=== PATIENT | female | born 1935 | race Caucasian/White ===

== ENCOUNTER 2021-01-03 11:36 | Inpatient (IN) | payer MEDICARE, BC ==
[~2021-01-03] VITALS: Ht 152.4 cm; Wt 100.0 kg
[2021-01-03 12:29] LABS: BASOPHILS # (AUTO) 0.1 X10'3 (0-0.2); EOSINOPHILS # (AUTO) 0.1 X10'3 (0-0.9); EOSINOPHILS % (AUTO) 1.4 % (0-6); HEMATOCRIT 35.8 % (35.0-45.0); LYMPHOCYTES # (AUTO) 2.7 X10'3 (1.1-4.8); LYMPHOCYTES % (AUTO) 30.8 % (21-51); MEAN CORPUSCULAR HEMOGLOBIN 20.9 PG (27.0-31.0); MEAN CORPUSCULAR HGB CONC 30.7 g/dL (33.0-36.5); MEAN CORPUSCULAR VOLUME 68.2 FL (78-98); MEAN PLATELET VOLUME 8.6 FL (7.4-10.4); MONOCYTES # (AUTO) 0.9 X10'3 (0-0.9); NEUTROPHILS % (AUTO) 56.8 % (42-75); PLATELET COUNT 330 X10'3 (140-440); RED BLOOD COUNT 5.25 X10'6 (4.20-5.60); RED CELL DISTRIBUTION WIDTH 19.3 % (11.5-14.5); WHITE BLOOD COUNT 8.8 X10'3 (4.5-11.0)
[2021-01-03 12:50] LABS: ALANINE AMINOTRANSFERASE 17 U/L (12-78); ALBUMIN 3.6 G/DL (3.4-5.0); ALKALINE PHOSPHATASE 117 IU/L (46-116); ANION GAP 9 (8-16); ASPARTATE AMINO TRANSFERASE 14 U/L (10-37); BILIRUBIN,TOTAL 0.6 MG/DL (0.1-1.0); BLOOD UREA NITROGEN 20 MG/DL (7-18); BUN/CREATININE RATIO 21.1 (6.6-38.0); CALCIUM 9.1 MG/DL (8.5-10.1); CHLORIDE 107 MMOL/L (99-107); CREATININE 0.95 MG/DL (0.40-0.90); GLUCOSE 96 MG/DL (70-104); POTASSIUM 4.3 MMOL/L (3.5-5.1); SODIUM 143 MMOL/L (135-145); TOTAL CARBON DIOXIDE 27.1 MMOL/L (24-32); TOTAL PROTEIN 7.3 G/DL (6.4-8.2); eGFR 56 ML/MIN
[2021-01-03] MEDS ORDERED: iohexol 350MG/ML 100ml bottle IV ONE (12:55)
[2021-01-03 13:18] LABS: PLATELET ESTIMATE NORMAL
[2021-01-03 13:19] LABS: HYPOCHROMASIA 2+; POLYCHROMASIA 1+
[2021-01-03 13:20] LABS: ANISOCYTOSIS 2+; ELLIPTOCYTES 1+; MICROCYTOSIS 2+
[2021-01-03] MEDS ORDERED: aspirin 325mg tablet PO ONE (14:15)
[2021-01-03] MEDS ORDERED: SYN0.088T PO (15:33)
[2021-01-03] MEDS ORDERED: LOSA25TA96 PO (15:46)
[2021-01-03] MEDS ORDERED: AMLO-93 PO (15:46)
[2021-01-03] MEDS ORDERED: normal saline 1000ml 1,000 ML IV SCH (16:25)
[2021-01-03] MEDS ORDERED: mag hydrox/Alum hydrox/simeth 30ml oral suspension PO PRN (16:25)
[2021-01-03] MEDS ORDERED: metoclopramide 5 mg/ml inj IV PRN (16:25)
[2021-01-03] MEDS ORDERED: ondansetron/PF 4mg/2ml inj IV PRN (16:25)
[2021-01-03] MEDS ORDERED: potassium Cl 20 mEq SR tablet PO PRN ×2 (16:25)
[2021-01-03] MEDS ORDERED: magnesium 4gm in 100ml NS 100 ML IV PRN (16:25)
[2021-01-03] MEDS ORDERED: magnesium hydroxide 30ml (MOM) UD suspension PO PRN (16:25)
[2021-01-03] MEDS ORDERED: bisacodyl 10mg suppository rectal RC PRN (16:25)
[2021-01-03] MEDS ORDERED: LORazepam 2 mg/ml vial IV PRN (16:25)
[2021-01-03] MEDS ORDERED: acetaminophen 325mg tablet PO PRN ×2 (16:25)
[2021-01-03] MEDS ORDERED: HYDROcodone/acetaminophen 10/325mg tab PO PRN (16:25)
[2021-01-03] MEDS ORDERED: magnesium 2GM in 50ml NS 50 ML IV PRN (16:25)
[2021-01-03] MEDS ORDERED: magnesium Cl slow-release 64mg tablet PO PRN (16:25)
[2021-01-03] MEDS ORDERED: potassium Cl 40MEQ/1/2NS 520ml 520 ML IV PRN ×2 (16:25)
[2021-01-03] MEDS ORDERED: HYDROcodone/acetaminophen 5mg/325mg tablet PO PRN (16:25)
[2021-01-03] MEDS: amLODIPine 5mg tablet PO SCH (17:28)
[2021-01-03] MEDS: K and/or MAG REPLACEMENT MC SCH (19:50)
[2021-01-03] MEDS: docusate sod 100mg capsule PO SCH (20:55)
[2021-01-03] MEDS ORDERED: temazepam 15mg capsule PO PRN (21:00)
[2021-01-03 21:07] LABS: CLARITY,URINE CLEAR (Clear); COLOR,URINE STRAW (Yellow); GLUCOSE, URINE NEGATIVE (Neg); KETONES,URINE NEGATIVE (Neg); LEUKOCYTE ESTERASE ,URINE NEGATIVE (Neg); NITRITES, URINE NEGATIVE (Neg); OCCULT BLOOD,URINE NEGATIVE (Neg); PROTEIN,URINE NEGATIVE (Neg); UA COLLECTION TYPE CLN CATCH MIDSTREAM; UROBILINOGEN,URINE 0.2 E.U/dL (0.2-1.0)
[2021-01-04 00:58] LABS: BASOPHILS # (AUTO) 0.1 X10'3 (0-0.2); BASOPHILS % (AUTO) 0.8 % (0-1); EOSINOPHILS # (AUTO) 0.2 X10'3 (0-0.9); EOSINOPHILS % (AUTO) 2.3 % (0-6); HEMOGLOBIN 10.2 g/dl (12.0-16.0); LYMPHOCYTES # (AUTO) 3.5 X10'3 (1.1-4.8); MEAN CORPUSCULAR HEMOGLOBIN 21.4 PG (27.0-31.0); MEAN CORPUSCULAR HGB CONC 31.9 g/dL (33.0-36.5); MEAN CORPUSCULAR VOLUME 67.1 FL (78-98); MEAN PLATELET VOLUME 8.6 FL (7.4-10.4); MONOCYTES % (AUTO) 10.8 % (2-12); NEUTROPHILS # (AUTO) 4.4 X10'3 (1.8-7.7); NEUTROPHILS % (AUTO) 48.1 % (42-75); PLATELET COUNT 312 X10'3 (140-440); RED BLOOD COUNT 4.77 X10'6 (4.20-5.60); RED CELL DISTRIBUTION WIDTH 19.2 % (11.5-14.5); WHITE BLOOD COUNT 9.1 X10'3 (4.5-11.0)
[2021-01-04 01:12] LABS: ALANINE AMINOTRANSFERASE 13 U/L (12-78); ALBUMIN 3.2 G/DL (3.4-5.0); ALBUMIN/GLOBULIN RATIO 0.9 (1.1-1.5); ALKALINE PHOSPHATASE 106 IU/L (46-116); ANION GAP 7 (8-16); ASPARTATE AMINO TRANSFERASE 16 U/L (10-37); BILIRUBIN,TOTAL 0.5 MG/DL (0.1-1.0); BLOOD UREA NITROGEN 17 MG/DL (7-18); BUN/CREATININE RATIO 19.1 (6.6-38.0); CALCIUM 8.6 MG/DL (8.5-10.1); CHLORIDE 106 MMOL/L (99-107); CREATININE 0.89 MG/DL (0.40-0.90); GLUCOSE 98 MG/DL (70-104); SODIUM 142 MMOL/L (135-145); TOTAL CARBON DIOXIDE 29.3 MMOL/L (24-32); TOTAL PROTEIN 6.6 G/DL (6.4-8.2); eGFR 60 ML/MIN
[2021-01-04 01:16] LABS: ANISOCYTOSIS 2+; ELLIPTOCYTES 1+; MICROCYTOSIS 2+; PLATELET ESTIMATE NORMAL
[2021-01-04 01:18] LABS: CHOL/HDL RATIO 6.4 (0.00-4.99); CHOLESTEROL 290 MG/DL (0-200); HDL CHOLESTEROL 45 MG/DL (35-60); LDL CHOLESTEROL 237 MG/DL (50-100); MAGNESIUM 2.1 MG/DL (1.5-2.4); PHOSPHORUS 3.7 MG/DL (2.3-4.5); TRIGLYCERIDES 75 MG/DL (20-135)
[2021-01-04] MEDS ORDERED: levoTHYROXINE 88mcg tablet PO SCH (07:00)
[2021-01-04] MEDS: docusate sod 100mg capsule PO SCH (08:00)
[2021-01-04] MEDS: K and/or MAG REPLACEMENT MC SCH (08:00)
[2021-01-04] MEDS ORDERED: enoxaparin 40mg/0.4ml syringe SUBCUT SCH (08:00)
[2021-01-04] MEDS ORDERED: losartan 50mg tablet PO SCH (08:00)
[2021-01-04] MEDS ORDERED: aspirin 81mg, enteric-coated 1 TAB TABLET.DR PO SCH (08:00)
[2021-01-04] MEDS: amLODIPine 5mg tablet PO SCH (08:28)
[2021-01-04] MEDS ORDERED: GADOTERATE MEGLUMINE 7.5 MMOL/15 ML VIAL IV ONE (10:22)
--- NOTE | 2021-01-04 12:30 | NUR ---
assumed care of pt from Eber HAMILTON
--- NOTE | 2021-01-04 13:17 | NUR ---
pt is sitting up at edge of bed eating lunch, nikunj well, no n/v
--- NOTE | 2021-01-04 13:25 | NUR ---
Marleen, stroke nurse at bedside, pt amb with cane to restroom, slow steady gait, no dizziness, no lightheaded
--- NOTE | 2021-01-04 13:40 | NUR ---
Dr Lockett at bedside to evaluate pt, gave verbal order for EKG
--- NOTE | 2021-01-04 13:48 | NUR ---
Dr Lockett said EKG showed irregular sinus rhythm
[2021-01-04] MEDS ORDERED: LOSA50TA64 PO (14:15)
[2021-01-04] MEDS ORDERED: ATOR40TA PO (14:15)
[2021-01-04] MEDS ORDERED: ASPI-1071 PO (14:15)
[2021-01-04] MEDS ORDERED: CLOP75TA15 PO (14:15)
[2021-01-04] MEDS ORDERED: NOR5T PO (14:15)
--- NOTE | 2021-01-04 14:15 | NUR ---
physical therapy at bedside
[2021-01-04 16:43] VITALS: BP 136/67
== END 2021-01-04 16:30 | disposition home health service (06) | DRG 66 ==
LOC: ER 11:37 → ED HOLD 16:30
PROVIDERS: ADMIT Family Medicine; ATTEND Family Medicine
PROC: B3251ZZ Computerized Tomography (CT Scan) of Bilateral Common Carotid Arteries using Low Osmolar Contrast (ICD-10-PCS; principal; 2021-01-03)
PROC: B32G1ZZ Computerized Tomography (CT Scan) of Bilateral Vertebral Arteries using Low Osmolar Contrast (ICD-10-PCS; 2021-01-03)
PROC: B32R1ZZ Computerized Tomography (CT Scan) of Intracranial Arteries using Low Osmolar Contrast (ICD-10-PCS; 2021-01-03)
PROC: B3281ZZ Computerized Tomography (CT Scan) of Bilateral Internal Carotid Arteries using Low Osmolar Contrast (ICD-10-PCS; 2021-01-03)
DX: I63.9 Cerebral infarction, unspecified (principal); D50.9 Iron deficiency anemia, unspecified; E03.9 Hypothyroidism, unspecified; E78.00 Pure hypercholesterolemia, unspecified; E78.5 Hyperlipidemia, unspecified; H53.8 Other visual disturbances; Z66 Do not resuscitate; H91.92 Unspecified hearing loss, left ear; R29.700 NIHSS score 0; I10 Essential (primary) hypertension; I25.10 Atherosclerotic heart disease of native coronary artery without angina pectoris; I25.2 Old myocardial infarction; Z90.711 Acquired absence of uterus with remaining cervical stump; Z95.1 Presence of aortocoronary bypass graft; Z95.5 Presence of coronary angioplasty implant and graft; Z82.3 Family history of stroke; Z88.0 Allergy status to penicillin; Z90.49 Acquired absence of other specified parts of digestive tract; Z79.899 Other long term (current) drug therapy
CPT/HCPCS: 36415; 70496; 70498; 70553; 71045; 80053; 80061; 81003; 83735; 83880; 84100; 84443; 84484; 85008; 85025; 93005; 97110; 97116; 97162; 99285; A9575; G0378; J2060; J7030; Q9967

== ENCOUNTER 2021-07-22 19:07 | Emergency (ER) | payer MEDICARE, BC ==
[~2021-07-22] VITALS: Ht 160 cm; Wt 100.0 kg
[~2021-07-22 19:07] MED LIST: ASPI-1071 PO; CLOP75TA15 PO; LOSA50TA64 PO; NOR5T PO; SYN0.088T PO
[2021-07-22 19:47] LABS: BASOPHILS # (AUTO) 0.1 X10'3 (0-0.2); BASOPHILS % (AUTO) 0.5 % (0-1); EOSINOPHILS # (AUTO) 0.2 X10'3 (0-0.9); EOSINOPHILS % (AUTO) 1.8 % (0-6); HEMATOCRIT 33.3 % (35.0-45.0); HEMOGLOBIN 10.4 g/dl (12.0-16.0); LYMPHOCYTES # (AUTO) 2.8 X10'3 (1.1-4.8); LYMPHOCYTES % (AUTO) 25.7 % (21-51); MEAN CORPUSCULAR HEMOGLOBIN 20.2 PG (27.0-31.0); MEAN CORPUSCULAR HGB CONC 31.2 g/dL (33.0-36.5); MEAN CORPUSCULAR VOLUME 64.7 FL (78-98); MEAN PLATELET VOLUME 8.8 FL (7.4-10.4); MONOCYTES % (AUTO) 9.5 % (2-12); NEUTROPHILS # (AUTO) 6.8 X10'3 (1.8-7.7); NEUTROPHILS % (AUTO) 62.5 % (42-75); PLATELET COUNT 342 X10'3 (140-440); RED BLOOD COUNT 5.15 X10'6 (4.20-5.60); RED CELL DISTRIBUTION WIDTH 20.6 % (11.5-14.5); WHITE BLOOD COUNT 10.9 X10'3 (4.5-11.0)
[2021-07-22 19:59] LABS: ALANINE AMINOTRANSFERASE 13 U/L (12-78); ALBUMIN 3.4 G/DL (3.4-5.0); ALBUMIN/GLOBULIN RATIO 0.9 (1.1-1.5); ALKALINE PHOSPHATASE 136 IU/L (46-116); ANION GAP 11 (8-16); ASPARTATE AMINO TRANSFERASE 17 U/L (10-37); BILIRUBIN,TOTAL 0.4 MG/DL (0.1-1.0); BLOOD UREA NITROGEN 18 MG/DL (7-18); CALCIUM 8.6 MG/DL (8.5-10.1); CHLORIDE 105 MMOL/L (99-107); CREATININE 0.82 MG/DL (0.40-0.90); GLUCOSE 102 MG/DL (70-104); POTASSIUM 3.9 MMOL/L (3.5-5.1); SODIUM 140 MMOL/L (135-145); TOTAL CARBON DIOXIDE 24.4 MMOL/L (24-32); TOTAL PROTEIN 7.3 G/DL (6.4-8.2); eGFR 66 ML/MIN
--- NOTE | 2021-07-22 21:20 | NUR ---
PIV d/c fully intact no s/s complication or adverse rxn. Pt verbilizes understanding of plan/aci, denies further questions.
[2021-07-22 21:21] VITALS: BP 143/63
[2021-07-23 01:02] LABS: ANISOCYTOSIS 3+; MICROCYTOSIS 2+; PLATELET ESTIMATE NORMAL
[2021-07-23 01:03] LABS: BURR CELLS FEW; ELLIPTOCYTES 1+
== END 2021-07-22 21:23 | disposition home or self-care (01) ==
LOC: ER 19:08
DX: I48.0 Paroxysmal atrial fibrillation (principal); R06.02 Shortness of breath; R05.9 Cough, unspecified; I48.91 Unspecified atrial fibrillation; E78.00 Pure hypercholesterolemia, unspecified; I10 Essential (primary) hypertension; Z98.890 Other specified postprocedural states; Z88.0 Allergy status to penicillin; Z79.899 Other long term (current) drug therapy
CPT/HCPCS: 36415; 71045; 80053; 83880; 85008; 85025; 93005; 99285